=== PATIENT | male | born 1970 | race American Indian/Alaskan Native ===

== ENCOUNTER 2017-12-05 06:43 | Emergency (ER) | payer SELFPAY ==
[2017-12-05 06:50] VITALS: BP 119/84
[2017-12-05] MEDS ORDERED: BSS 1 DROPS, TETRACAINE 0.5% 1 DROPS, FUL-GLO 0.6 MG TP ONE (07:35)
--- NOTE | 2017-12-05 07:41 | Emergency Department Report ---
[facility] Chief Complaint: Eye Problems Stated Complaint: BILATERAL EYE PAIN Time Seen by Provider: 12/05/17 07:01 Duration: 4 Days Side: Bilateral Severity: mild Symptoms: Yes Eye Itching (both eyes), Yes Eye Redness (both eyes), Yes Mucous Drainage, No Eye Pain, No Purulent Drainage, No Blurred Vision (denies any blurred vision), No Preceding URI, No H/O Allergic Rhinitis, No Contact Lens Use , No Trauma, No Fever, No Headache Other History: This is a 47-year-old male said that he woke up on Monday morning and he noticed that his right eye was red with crusting and close shut. He said an Monday his other eye was red and crusted so now both eyes are red crusting in the morning and itchy. No foreign body sensation. Denies any trauma or foreign body to eyes. Denies wearing contact lenses. Denies any visual difficulties. He wears glasses which he doesn't have with him. Tetanus vaccine is up-to-date. Denies any upper respiratory symptoms. Denies any nausea vomiting, cough, chest pain or shortness of breath. Denies any sore throats or earache. Pain is 0/10. He said he use [id number] eyedrops for pinkeye but no relief. No exacerbating factors. ED Review of Systems ROS: Stated complaint: BILATERAL EYE PAIN Other details as noted in HPI Constitutional: denies: chills, fever Eyes: eye discharge. denies: eye pain, vision change ENT: denies: ear pain, throat pain, congestion Respiratory: denies: cough, shortness of breath, wheezing Cardiovascular: denies: chest pain, palpitations Gastrointestinal: denies: abdominal pain, nausea, diarrhea Genitourinary: denies: urgency, dysuria Musculoskeletal: denies: back pain, joint swelling, arthralgia Skin: denies: rash, lesions Neurological: denies: headache ED Past Medical Hx - Past Medical History Previous Medical History?: No - Surgical History Past Surgical History?: No - Family History Family history: no significant - Social History Smoking Status: Current Every Day Smoker Substance Use Type: None - Medications Home Medications: Home Medications Medication Instructions Recorded Confirmed Last Taken Type Gentamicin 0.3% Ophth Soln 2 drops OP Q8H 7 Days #1 bottle 12/05/17 Unknown Rx [facility] Exam - Exam General: Vital signs noted. No distress. Alert and acting appropriately. This is a 47-year-old male well-nourished well-developed in no acute distress. Eye Exam: Both Injection, Both EOMI (visual acuity 20/30 right, 20/40 left and 20/25 both eyes), Both Mucous Discharge, Both Corneal Edema, Both Photophobia, Neither Chemosis, Neither Abnormal Pupil, Neither Eye Foreign Body, Neither Lid Foreign Body, Neither Purulent Discharge HEENT: No Nasal Congestion, No Pharyngeal Erythema Remainder of HEENT: Normal Lungs: Yes Clear Lung Sounds, No Good Air Exchange, No Wheezes, No Stridor, No Cough, No Nasal Flaring, No Retractions, No Use of Accessory Muscles ED Course Vital Signs 12/05/17 06:44 Temperature 98.0 F Pulse Rate 79 Respiratory 18 Rate Blood Pressure 119/84 O2 Sat by Pulse 98 Oximetry - Reevaluation(s) Reevaluation #1: 12/05/17 07:54 Patient stable throughout ED course. ED Medical Decision Making - Medical Decision Making ED course This is a 47-year-old male here reports that he has pinkeye. He says that started 4 days ago and one I when he woke up and his eye was matted shut and that it went to his other eye and now he woke up this morning in both eyes are matted shut. He denies any eye pain or any foreign body sensation. He does not work contact lenses. Patient wears glasses and is not complain any visual problems. Patient was examined by myself and found to have bilateral conjunctivitis. Unable to rule out corneal abrasion because he does not have any foreign body sensation, pain did not have any trauma or any particles that when his eyes. Tetanus vaccine is up-to-date. I discussed diagnosis patient and treatment plan and he voiced understanding. Visual acuity is done and recorded and physical exam. This was done without his glasses and was stable. A/P 1: Conjunctivitis both eyes-visual acuity done in stable, patient will be discharged home in [facility] and referred to [facility]. Discharge instruction given on diagnosis, medication and treatment plan. I also discussed with them practice good hand hygiene and to return discharge information on pinkeye. He voiced understanding. Patient discharged home in stable condition to follow up with his primary care and also with [facility] in 2 days. I discussed with him if his eye symptoms worsen and he developed blurred vision, eye pain and or not getting better to return to the emergency room otherwise follow-up as instructed. He voiced understanding. Vital signs are stable and is afebrile and discharged home with his family in stable condition. - Differential Diagnosis corneal abrasion, conjunctivitis, subconjunctival hemorrhage, URI Critical care attestation.: If time is entered above; I have spent that time in minutes in the direct care of this critically ill patient, excluding procedure time. ED Disposition Clinical Impression: Conjunctivitis Qualifiers: Conjunctivitis type: acute Acute conjunctivitis type: bacterial Laterality: bilateral Qualified Code(s): H10.33 - Unspecified acute conjunctivitis, bilateral Disposition: TO HOME OR SELFCARE Is pt being admited?: No Does the pt Need Aspirin: No Condition: Stable Instructions: Conjunctivitis (ED) Additional Instructions: Please follow up with [facility] in 2 days Follow-up with primary care physician in 2-3 days. Keep affected areas clean and dry Use antibiotic as prescribed If symptoms worsens, please return to the emergency room Prescriptions: Gentamicin 0.3% Ophth Soln 2 drops OP Q8H 7 Days #1 bottle Referrals: PRIMARY CAREMD [Primary Care Provider] - 2-3 Days [facility] [Outside] - 2-3 Days BRUCE COTTON MD [Staff Physician] - 12/07/17 Forms: Work/School Release Form(ED), Accompanied Note
== END 2017-12-05 08:15 | disposition home or self-care (01) ==
LOC: ED 06:43
DX: H10.33 Unspecified acute conjunctivitis, bilateral (principal); F17.200 Nicotine dependence, unspecified, uncomplicated
CPT/HCPCS: 99282

== ENCOUNTER 2020-02-29 22:13 | Emergency (ER) | payer SELFPAY ==
[2020-03-01 00:06] VITALS: BP 146/116
--- NOTE | 2020-03-01 02:01 | XRay Report ---
LUMBAR SPINE 3 VIEWS INDICATION / CLINICAL INFORMATION: left lower back pain. COMPARISON: None available. FINDINGS: No fracture, subluxation or other significant abnormality. Signer Name: Davin Young MD Signed: 03/01/2020 1:57 AM Workstation Name: [id number]
[2020-03-01] MEDS ORDERED: IBUPROFEN 800 MG TAB PO ONE (02:12)
[2020-03-01] MEDS ORDERED: CYCLOBENZAPRINE 10 MG TAB PO ONE (02:12)
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
[2020-03-01] MEDS ORDERED: ACETAMINOPHEN 500 MG TAB PO ONE (02:13)
--- NOTE | 2020-03-01 02:27 | XRay Report ---
LEFT HIP 2 VIEWS INDICATION / CLINICAL INFORMATION: left hip pain. COMPARISON: None available. FINDINGS: Slight deformity of the left femoral head, but no evidence of active osteonecrosis or advanced degene rative change. No fracture or other acute abnormality. Signer Name: Davin Young MD Signed: 03/01/2020 2:23 AM Workstation Name: [id number]
--- NOTE | 2020-03-01 02:28 | XRay Report ---
LEFT KNEE 3 VIEWS INDICATION / CLINICAL INFORMATION: left knee pain. COMPARISON: None available. FINDINGS: No fracture or other skeletal abnormality. No evidence of significant joint effusion or hemarthrosis. Signer Name: Davin Young MD Signed: 03/01/2020 2:23 AM Workstation Name: [id number]
== END 2020-03-01 02:44 | disposition home or self-care (01) ==
LOC: ED 22:13
DX: S73.102A Unspecified sprain of left hip, initial encounter (principal); M54.5 Low back pain; M62.830 Muscle spasm of back; F17.200 Nicotine dependence, unspecified, uncomplicated; Z79.899 Other long term (current) drug therapy; X58.XXXA Exposure to other specified factors, initial encounter; Y93.89 Activity, other specified; Y92.89 Other specified places as the place of occurrence of the external cause; Y99.8 Other external cause status
CPT/HCPCS: 72100